=== PATIENT | female | born 1950 ===

== ENCOUNTER 2021-05-19 09:22 | Outpatient (CLI) | payer OTHER | END 2021-05-19 09:24 | disposition home or self-care (01) | LOC: SONOGRAMA 09:22 | PROVIDERS: ATTEND Pathology Anatomic Pathology & Clinical Pathology | DX: E04.2 Nontoxic multinodular goiter (principal) ==

== ENCOUNTER 2022-07-21 07:11 | Outpatient (CLI) | payer OTHER | END 2022-07-21 07:17 | disposition home or self-care (01) | LOC: TOM 07:11 | PROVIDERS: ATTEND Student in an Organized Health Care Education/Training Program | DX: R19.4 Change in bowel habit (principal); Z12.11 Encounter for screening for malignant neoplasm of colon ==